=== PATIENT | male | born 1960 | race Asian ===

== ENCOUNTER 2019-06-22 07:49 | Day surgery (SDC) | payer BC ==
[2019-06-22 08:37] LABS: PLATELET COUNT 278 K/uL (142-355)
[2019-06-22 08:51] LABS: POTASSIUM 4.1 mmol/L (3.6-5.2)
== END 2019-06-22 11:12 | disposition home or self-care (01) ==
LOC: OR 07:49
PROVIDERS: Student in an Organized Health Care Education/Training Program
PROC: 0DBK8ZZ Excision of Ascending Colon, Via Natural or Artificial Opening Endoscopic (ICD-10-PCS; principal; 2019-06-22)
PROC: 0DBN8ZZ Excision of Sigmoid Colon, Via Natural or Artificial Opening Endoscopic (ICD-10-PCS; 2019-06-22)
DX: K63.5 Polyp of colon (principal); Z12.11 Encounter for screening for malignant neoplasm of colon; K57.30 Diverticulosis of large intestine without perforation or abscess without bleeding; K64.8 Other hemorrhoids; Z86.010 Personal history of colon polyps
CPT/HCPCS: 80053; 85027; J2001; J2250; J2405; J2704

== ENCOUNTER 2020-06-29 09:58 | Outpatient (CLI) | payer BC | END 2020-06-29 20:38 | disposition home or self-care (01) | LOC: RAD 09:58 | DX: M25.562 Pain in left knee (principal) ==

== ENCOUNTER 2021-02-18 10:06 | Outpatient (CLI) | payer BC | END 2021-02-18 19:44 | disposition home or self-care (01) | LOC: RAD 10:06 | PROVIDERS: ATTEND Nurse Practitioner Family | DX: M25.519 Pain in unspecified shoulder (principal); M25.569 Pain in unspecified knee ==